=== PATIENT | male | born 1985 | race Caucasian/White ===

== ENCOUNTER 2016-12-28 08:06 | Emergency (ER) | payer OTHER ==
[~2016-12-28] VITALS: Ht 175.3 cm; Wt 80.0 kg
[~2016-12-28 08:06] MED LIST: OXYC-68 PO
[2016-12-28 08:07] VITALS: BP 135/71; PULSE 79; RESP 16; TEMP 98.1; O2SAT 99
[2016-12-28] MEDS ORDERED: ROBA500T PO (08:40)
[2016-12-28] MEDS ORDERED: KETO10 PO (08:40)
--- NOTE | 2016-12-28 08:40 | PD ---
HPI Chief Complaint: Back/ Neck Pain or Injury Time Seen by Provider: 08:38 Travel History International Travel<30 days: No Contact w/Intl Traveler<30days: No Traveled to known affect area: No History of Present Illness HPI 31-year-old male presents to the emergency Department with complaint of low back pain 2 days. 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 His back pain started after work on Monday. Says he's had back pain like this before. Denies encopresis, incontinence, saddle anesthesias. Denies fever , chills, nausea, vomiting. Denies paresthesias, loss of sensation, decreased range of motion, decreased strength to bilateral lower extremities. Denies IV drug use, cancer. Has tried taking ibuprofen with no relief of symptoms. Has not taken any other medications or tried any other treatments to alleviate his symptoms. Pain is aggravated with walking and movement. No known relieving factors. No known allergies. Denies significant past medical history. No other modifying factors or associated signs and symptoms. PFSH Past Medical History Diminished Hearing: No Headaches: Yes Psychiatric: Yes (PTSD) Immunizations Current: Yes Triglycerides - High: Yes Social History Alcohol Use: Yes (RARELY) Tobacco Use: Yes (1 PPD) Substance Use: No Allergies-Medications (Allergen,Severity, Reaction): Coded Allergies: No Known Allergies (Unverified , 09/16/14) Reported Meds & Prescriptions Reported Meds & Active Scripts Active Robaxin (Methocarbamol) 500 Mg Tab 500 Mg PO QID PRN Ketorolac (Ketorolac Tromethamine) 10 Mg Tab 10 Mg PO TID PRN 5 Days Reported Oxycodone/Acetaminophen Oxycodone 5/325 Acetaminophen Tab 1 Tab PO Q4H PRN Review of Systems Except as stated in HPI: all other systems reviewed are Neg Physical Exam Narrative GENERAL: Well-nourished, well-developed male patient, in no acute distress; afebrile, nontoxic-appearing SKIN: Warm and dry. HEAD: Atraumatic. Normocephalic. EYES: Pupils equal and round. No scleral icterus. No injection or drainage. ENT: Mucosa pink and moist. Airway patent. NECK: Trachea midline. CARDIOVASCULAR: Regular rate. RESPIRATORY: No accessory muscle use. GASTROINTESTINAL: Flat. MUSCULOSKELETAL: Bilateral lower extremities supple and non-tense with 2+ pedal pulses and sensory intact; with full range of motion and 5/5 strength. 2 + DTRs bilaterally. Active dorsiflexion and extension of bilateral feet. Bilateral straight leg raise is positive for low back pain; worse on the left than right. Ambulatory with normal gait in room. Sitting up in bed at 90. No obvious deformities. No clubbing. No cyanosis. No edema. BACK: No midline point tenderness on palpation of the lumbar, thoracic, or cervical spine. Tenderness on palpation of bilateral paraspinal area. No obvious deformities. NEUROLOGICAL: Awake and alert. Oriented 3. No obvious cranial nerve deficits. Motor grossly within normal limits. Normal speech. Moves all extremities. 5/5 strength to all extremities. Sensory intact. PSYCHIATRIC: Appropriate mood and affect; insight and judgment normal. Data Data Last Documented VS Vital Signs Date Time Temp Pulse Resp B/P Pulse Ox O2 Delivery O2 Flow Rate FiO2 12/28/16 08:07 98.1 79 16 135/71 99 Room Air Orders Ketorolac Inj (Toradol Inj) (12/28/16 08:45) Orphenadrine Inj (Norflex Inj) (12/28/16 08:45) MDM Medical Decision Making Medical Screen Exam Complete: Yes Emergency Medical Condition: Yes Medical Record Reviewed: Yes Differential Diagnosis Low back strain, acute low back pain, muscle spasm Narrative Course 31-year-old male physical examination consistent with low back strain and acute low back pain. Denies encopresis, incontinence, saddle anesthesias. Denies IV drug use, cancer. Patient is afebrile and nontoxic-appearing. No reproducible tenderness to midline lumbar or thoracic spine. Patient ambulatory in the room with a normal gait. Toradol and Norflex administered in the ER. Toradol and Robaxin prescribed for home. Patient verbalizes understanding and agreement with treatment plan. Patient is medically cleared and stable for discharge. Discussed reasons to return to the emergency department. Instructed patient to follow up with primary care provider. Patient agrees with treatment plan. The patients vital signs are stable and the patient is stable for outpatient follow- up and treatment. Patient discharged home, stable and in no acute distress. Diagnosis Primary Impression: Low back strain Qualified Code: S39.012A - Low back strain, initial encounter Additional Impression: Acute low back pain Qualified Code: M54.5 - Acute bilateral low back pain without sciatica Referrals: Primary Care Physician Patient Instructions: Acute Low Back Pain (ED), General Instructions, Low Back Strain (ED) Departure Forms: Tests/Procedures, Work Release Enter return to work date: Dec 28, 2016 Additional Instructions: Tylenol or ibuprofen as directed and as needed for pain Robaxin as prescribed and as needed for muscle spasms Heating pad and/or ice to affected area to reduce pain Avoid aggravating activities; increase activity as tolerated Follow-up with primary care provider Return to emergency department immediately with worsening of symptoms Med/Other Pt SpecificInfo: Prescription(s) given Scripts Methocarbamol (Robaxin)500 Mg [id number] Mg PO QID PRN (MUSCLE SPASM) #30 TAB Ref 0 Prov:Sylvia Elliott 12/28/16 Ketorolac 10 Mg Tab10 Mg PO TID PRN (PAIN SCALE 1 TO 10) 5 Days Ref 0 Prov:Sylvia Elliott 12/28/16 Disposition: 01 DISCHARGE HOME Condition: Stable Sylvia Elliott Dec 28, 2016 08:40
[2016-12-28] MEDS ORDERED: KETOROLAC TROMETHAMINE 60 MG/2 ML (IM) VIAL IM ONE (08:45)
[2016-12-28] MEDS ORDERED: ORPHENADRINE INJ 60 MG/2 ML AMP IM ONE (08:45)
== END 2016-12-28 09:14 | disposition home or self-care (01) ==
LOC: NETRI 08:06
DX: S39.012A Strain of muscle, fascia and tendon of lower back, initial encounter (principal); F43.10 Post-traumatic stress disorder, unspecified; X50.0XXA Overexertion from strenuous movement or load, initial encounter; X50.9XXA Other and unspecified overexertion or strenuous movements or postures, initial encounter; Y93.89 Activity, other specified; Y92.9 Unspecified place or not applicable; F17.210 Nicotine dependence, cigarettes, uncomplicated
CPT/HCPCS: 96372; 99282; J1885; J2360